=== PATIENT | male | born 1990 | race Caucasian/White ===

== ENCOUNTER → 2024-04-22 | Emergency (ER) | payer MEDICAID ==
[~2024-04-22] VITALS: Ht 175.3 cm; Wt 68.4 kg
[~2024-04-22] MED LIST: BENA10TA74 PO; CALC-793 PO; CLON0.2T PO; DOCU250C89 PO; METH20CP12 PO; METH30CP PO; THIO300C PO
[2024-04-22 12:21] VITALS: BP 129/82; PULSE 100; TEMP 98.5; O2SAT 98
[2024-04-22 13:02] VITALS: RESP 18
== END | disposition home or self-care (01) ==
LOC: ER 12:15
DX: Z76.0 Encounter for issue of repeat prescription (principal); F90.9 Attention-deficit hyperactivity disorder, unspecified type; Z79.899 Other long term (current) drug therapy
CPT/HCPCS: 99281